=== PATIENT | male | born 1985 | race Caucasian/White ===

== ENCOUNTER 2016-10-03 03:03 | Inpatient (IN) | payer SELFPAY ==
[~2016-10-03] VITALS: Ht 172.7 cm; Wt 80.3 kg
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
--- NOTE | ~2016-10-03 | CON ---
PATIENT'S NAME: AHSAN WALSH [facility] AGE: 31 Y [address] ROOM: [address] [place] [id number] LOCATION: GICU ADMIT DATE: 10/03/2016 Consultation DISCHARGE DATE: 10/03/2016 FAMILY PHYSICIAN: Physician, Unknown ATTENDING PHYSICIAN: Beto Mitchell REFERRING PHYSICIAN: John Gómez MD HISTORY OF PRESENT ILLNESS: Dr. Mitchell has requested that I provide an inpatient consultation on this 31- year-old retired [employer] who was transferred emergently to [facility] from [place] last evening after he experienced a reported anaphylactic reaction while receiving intravenous sedation to undergo closed reduction of a right shoulder dislocation. History is obtained from the patient's cousin (who is at his bedside in the Intensive Care Unit). History is also obtained from review of his chart. The patient, himself, is intubated in the Intensive Care Unit and is not capable of providing history. The patient sustained an unspecified injury to his right shoulder while serving in the [employer] in [facility]. He sustained multiple injuries while serving in [facility] resulting in a right shoulder resurfacing hemiarthroplasty and a right total hip arthroplasty. His cousin is uncertain regarding how well the right shoulder has been feeling and functioning. The patient fell in the shower yesterday with resultant right shoulder pain and difficulty moving his right shoulder. He was taken to the [place] [facility] where x-rays demonstrated a dislocation of his right shoulder. PHYSICAL EXAMINATION: GENERAL: The patient is sedated and intubated. EXTREMITIES: The right shoulder demonstrates a well-healed deltopectoral scar. There is atrophy of subcutaneous tissues surrounding the scar. Motor and sensory exam of the right shoulder is not possible. There is no swelling, erythema, or ecchymosis at the right shoulder. A 1+ radial pulse. There is no peripheral edema in the right upper extremity. RADIOGRAPHS: I reviewed outside radiographs of the right shoulder. These demonstrate a resurfacing type humeral hemiarthroplasty. The humeral head is anteroinferiorly dislocated. There appears to be a slight radiolucency at the humeral stem interface. There was heterotopic bone along the medial aspect of the proximal humeral shaft. IMPRESSION: Right shoulder instability, status post right shoulder resurfacing hemiarthroplasty (performed elsewhere). The baseline functional status of PATIENT'S NAME: AHSAN WALSH [facility] AGE: 31 Y [address] ROOM: [address] [address] LOCATION: GICU ADMIT DATE: 10/03/2016 Consultation DISCHARGE DATE: 10/03/2016 FAMILY PHYSICIAN: Physician, Unknown ATTENDING PHYSICIAN: Beto Mitchell this shoulder not known. RECOMMENDATIONS: I recommended and performed a closed reduction maneuver under intravenous sedation. Please refer to the separately dictated procedure note. Postreduction radiographs demonstrated that the dislocation had been reduced. There is suggestion of a potential fracture of the anterior inferior glenoid (age uncertain). The glenoid is not resurfaced. I have recommended immobilization in a sling. Further history will be gleaned from the patient after he is extubated, and I would like to obtain prior radiographs for comparison and examine the patient with him alert. Based upon the examination under anesthesia, he is at risk for recurrent instability. I have shared my thoughts and recommendations directly with the patient's cousin (with whom the patient lives). MD SHERYL MOTA/allie /[id number] CC: Beto Mitchell MD d: 10/03/16 2338 t: 10/07/16 0753, CONSULTATION REPORT
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
--- NOTE | ~2016-10-03 | DS ---
PATIENT'S NAME: RAGHU [facility] AGE: 31 Y [address] ROOM: [address] [place], [place] [address] LOCATION: GICU ADMIT DATE: 10/03/2016 Discharge Summary DISCHARGE DATE: 10/03/2016 FAMILY PHYSICIAN: Physician, Unknown ATTENDING PHYSICIAN: Beto Mitchell DISCHARGE DIAGNOSES: 1. Acute anaphyllaxis secondary to Valium. 2. Dislocated right shoulder. PROCEDURES: 1. Mechanical ventilation. 2. Relocation of right shoulder under anesthesia by Dr. Gómez. REASON FOR ADMISSION: The patient had received some Valium he is allergic to in [facility]. Reference is made to the H and P. They could not relocate his shoulder and he subsequently had anaphylaxis to the Valium. So, for multiple reasons, his care was moved to here to this higher level. There was really no laboratory done here today. Reference is made to the lab results from outside the hospital. They kept the patient sedated until Dr. Gómez was able to do the relocation this morning and upon withdrawing anesthesia, the patient awoke and wanted to leave and not wait to avoid a possible second bimodal anaphylactic experience. I had a long discussion with him. He is a 10-year [employer] and he is used to taking care of himself. The additional history to that in the H and P includes: 1. Total right hip. 2. Right humeral head replacement. 3. He had a brief period of what he might describe as PTSD when he returned to the [facility], but he feels like it was nothing anybody returning from combat would not have gone through and he does not consider himself to have it now. He is status post surgical removal of a malignant hepatoma. He has not gotten followup on that as recommended. So, he is not sure whether or not there is any recurrence at this point. He is an occasional smoker. Denies psychiatric issues or history of use of psychiatric medications. He will be discharged on prednisone 20 b.i.d. for 6 days. We will give him 25 of Benadryl before he leaves and put him on Claritin 10 mg daily in the hopes of warding off any secondary anaphylactic issues. I did recommend if he was going to use NSAIDs like the ibuprofen he had been taking, that he wait until he is off the prednisone to avoid an ulcer and I also told him if he was going PATIENT'S NAME: [facility]HU [facility] AGE: 31 Y [address] ROOM: [address] [place], [place] [address] LOCATION: [facility] ADMIT DATE: 10/03/2016 Discharge Summary DISCHARGE DATE: 10/03/2016 FAMILY PHYSICIAN: Physician, Unknown ATTENDING PHYSICIAN: Beto Mitchell to take them at those dosages, that he probably needed a proton pump inhibitor to protect his stomach. So, I prescribed omeprazole for him, told him how to take it. DISCHARGE INSTRUCTIONS: Diet will be ad jose. Activity: We will recommend orthopedic followup. I am checking with Dr. Gómez about an orthopedist close to [place] and I will recommend physical therapy regardless for that right shoulder to see if we can prevent any further dislocations as Dr. Gómez did say the soulder was unstable and I informed Raghu of that. Note that discharge time was greater than 30 minutes. MD TANIA FRANCO/modl /[id number] d: 10/04/16 0200 t: 10/08/16 1614, DISCHARGE SUMMARY
[2016-10-03 05:09] LABS: HEMATOCRIT 40.9 % (37.0-53.0); HEMOGLOBIN 13.6 g/dL (12.0-17.0); MCH 28.3 pg (27.0-34.0); MCHC 33.3 gm/dL (32.0-36.5); MCV 85.2 fl (83.0-98.0); MPV 8.9 fl (9.4-12.4); RBC 4.8 M/uL (4.00-6.00); RDW-CV 13.2 % (11.9-14.6)
[2016-10-03 05:15] LABS: PROTIME 10.7 SECONDS (9.6-11.1)
--- NOTE | 2016-10-03 05:23 | NUR ---
Patient arrived to floor at 0315 intubated with a 7.0 tube, approximately 24 at the lip. He was weaned from an FIO2 of 70% down to an FIO2 of 30%. End tidal has been in the mid 30's. Breath sounds are slightly coarse before and after suctioning. Suctioned a small amount of thick white secretions. Plan for today is to extubate.
[2016-10-03 05:26] LABS: ALBUMIN 3.2 gm/dL (3.5-5.0); ALK PHOS 59 IU/L (33-138); ALT 31 IU/L (12-78); ANION GAP 13.8 (10.0-19.0); AST 12 IU/L (10-40); BLOOD UREA NITROGEN 20 mg/dL (6-24); CALCIUM 7.6 mg/dL (8.5-10.5); CHLORIDE 112 mMol/L (96-110); CO2 21 mMol/L (22-32); CREATININE 0.6 mg/dL (0.6-1.3); ESTIMATED GFR (MDRD EQUATION) > 60; PHOSPHORUS 3.4 mg/dL (2.5-4.9); POTASSIUM 3.8 mMol/L (3.7-5.1); SODIUM 143 mMol/L (135-145); TOTAL BILIRUBIN 0.3 mg/dL (0.0-1.5); TOTAL PROTEIN 5.9 g/dL (6.0-8.4)
--- NOTE | 2016-10-03 05:30 | NUR ---
PT ADMITTED FROM [facility] ER AT 0315. PT ALERT, WRITING TO COMMUNICATE, ASKING QUESTIONS AND PROVIDING LIMITED HEALTH HISTORY. PROPOFOL STARTED FOR ANXIOLYSIS/SEDATION. CURRENTLY SEDATED ON 15 MCG/KG/MIN WITH PRN FENTANYL FOR PAIN MANAGEMENT. LUNGS SLIGHTLY COARSE, OVERBREATHES VENT. SR ON MONITOR, PULSES GOOD THROUGHOUT, BP SLIGHTLY HYPOTENSIVE. OG TO LIS, ACTIVE BS, NO BM THIS SHIFT. NO ZUÑIGA PLACED DUE TO EXPECTED EXTUBATION THIS AM; NO VOIDS SINCE ADMISSION. NO SKIN ISSUES OTHER THAN OLD HEALED SCARS. ALL LINES REMAIN IN PLACE AND PATENT. MARIIA THURMAN RN
[2016-10-03] MEDS ORDERED: PERCOCET 5-3251 EACH PO (13:42)
[2016-10-03] MEDS ORDERED: OMEPRAZOLE20 M1 PO (13:43)
[2016-10-03] MEDS ORDERED: DELTASONE20 MG PO (13:44)
[2016-10-03] MEDS ORDERED: CLARITIN10 MG PO (13:44)
== END 2016-10-03 14:20 | disposition disaster alternative care site (69) | DRG 916 ==
LOC: GICU 03:03
PROVIDERS: ADMIT Internal Medicine
PROC: 0RSJ3ZZ Reposition Right Shoulder Joint, Percutaneous Approach (ICD-10-PCS; principal; 2016-10-03)
DX: T78.2XXA Anaphylactic shock, unspecified, initial encounter (principal); S43.004A Unspecified dislocation of right shoulder joint, initial encounter; W18.2XXA Fall in (into) shower or empty bathtub, initial encounter; Y92.012 Bathroom of single-family (private) house as the place of occurrence of the external cause
CPT/HCPCS: C9113; J1200; J2704; J3010; J7030

== ENCOUNTER → 2016-10-03 | Outpatient (CLI) | payer SELFPAY ==
[~2016-10-03] MED LIST: CLARITIN10 MG PO; DELTASONE20 MG PO; OMEPRAZOLE20 M1 PO; PERCOCET 5-3251 EACH PO
== END | disposition disaster alternative care site (69) ==
LOC: GAIR 02:40
DX: T78.40XA Allergy, unspecified, initial encounter (principal); Z88.1 Allergy status to other antibiotic agents; Z88.8 Allergy status to other drugs, medicaments and biological substances
CPT/HCPCS: A0422; A0431; A0436; J2250; J3010

== ENCOUNTER 2016-10-19 15:50 | Emergency (ER) | payer SELFPAY ==
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
[2016-10-19 17:09] LABS: BASOPHIL % 0.3 %; EOSINOPHIL % 0.2 %; HEMATOCRIT 48.5 % (37.0-53.0); HEMOGLOBIN 16.5 g/dL (12.0-17.0); IMMATURE GRANULOCYTE % 0.2 %; LYMPHOCYTE # 1.2 K/uL (0.8-4.0); LYMPHOCYTE % 13.5 %; MCH 28.4 pg (27.0-34.0); MCV 83.3 fl (83.0-98.0); MONOCYTE # 0.4 K/uL (0.0-1.0); MONOCYTE % 4.5 %; MPV 8.8 fl (9.4-12.4); NEUTROPHIL % 81.3 %; NRBC % 0 /100WBC (0-0.00); PLATELET COUNT 257 K/uL (150-450); RBC 5.82 M/uL (4.00-6.00); RDW-CV 13.3 % (11.9-14.6); WBC 8.7 K/uL (4.0-11.0)
[2016-10-19 17:25] LABS: ALBUMIN 4.6 gm/dL (3.5-5.0); ALK PHOS 101 IU/L (33-138); ALT 34 IU/L (12-78); AST 24 IU/L (10-40); BLOOD UREA NITROGEN 11 mg/dL (6-24); CALCIUM 8.9 mg/dL (8.5-10.5); CHLORIDE 106 mMol/L (96-110); CO2 23 mMol/L (22-32); CREATININE 0.9 mg/dL (0.6-1.3); ESTIMATED GFR (MDRD EQUATION) > 60; SODIUM 138 mMol/L (135-145); TOTAL PROTEIN 8.1 g/dL (6.0-8.4)
[2016-10-19 17:31] LABS: TOTAL BILIRUBIN 0.5 mg/dL (0.0-1.5)
[2016-10-20 01:15] LABS: BILIRUBIN URINE NEGATIVE (NEGATIVE); BLOOD URINE NEGATIVE /UL (NEGATIVE); COLOR URINE YELLOW (YELLOW); GLUCOSE URINE NEGATIVE (NEGATIVE); KETONE URINE NEGATIVE (NEGATIVE); LEUKOCYTES URINE NEGATIVE /UL (NEGATIVE); NITRITE URINE NEGATIVE (NEGATIVE); PROTEIN URINE NEGATIVE (NEGATIVE); TURBIDITY URINE CLEAR (CLEAR); UROBILINOGEN URINE NORMAL (NORMAL)
== END 2016-10-19 22:25 | disposition disaster alternative care site (69) ==
LOC: GMED 15:50
PROVIDERS: Emergency Medicine; Physician Assistant Medical
PROC: 0T9B70Z Drainage of Bladder with Drainage Device, Via Natural or Artificial Opening (ICD-10-PCS; principal; 2016-10-19)
DX: R53.1 Weakness (principal); R20.0 Anesthesia of skin; F17.200 Nicotine dependence, unspecified, uncomplicated; Z88.8 Allergy status to other drugs, medicaments and biological substances
CPT/HCPCS: J1100; J1200; J3010; J7030

== ENCOUNTER 2016-11-22 16:56 | Observation (INO) | payer SELFPAY ==
[~2016-11-22] VITALS: Ht 172.7 cm; Wt 76.4 kg
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
--- NOTE | 2016-11-23 04:57 | NUR ---
Significant Event: VSS, PT AFEBRILE. PT HAD 1 PINK TINGED VOID THIS SHIFT FOR A TOTAL OF 40ML, BLADDER SCANNED AND PT ONLY HAD 250 ML. CALLED INFORMED MD OF LITTLE OUTPUT-NO ORDERS RECEIVED. PT QUITE DISRUPTIVE AND INAPPROPRIATE THIS SHIFT (SEE PT NOTE). NURSING CLERK STARTED AT 1999. URINE SENT FOR C&S. IV FLUIDS CONTINUE AT 100ML/HR. GIRLFRIEND IN ROOM. PAIN IS DOWN TO A 6 WITH NURSING CLERK. UP IN ROOM AND HALLWAY. USES CALL LIGHT APPROPRIATELY. Follow up:
[2016-11-23 06:01] LABS: BASOPHIL % 0.4 %; EOSINOPHIL # 0.2 K/uL (0.0-0.5); EOSINOPHIL % 3.3 %; HEMOGLOBIN 13.5 g/dL (12.0-17.0); IMMATURE GRANULOCYTE % 0.4 %; MCH 28.6 pg (27.0-34.0); MCHC 33.8 gm/dL (32.0-36.5); MCV 84.7 fl (83.0-98.0); MONOCYTE # 0.4 K/uL (0.0-1.0); MONOCYTE % 7.5 %; MPV 8.7 fl (9.4-12.4); NEUTROPHIL # (ANC) 2.3 K/uL (1.4-9.0); NEUTROPHIL % 47.4 %; NRBC % 0 /100WBC (0-0.00); PLATELET COUNT 192 K/uL (150-450); RBC 4.72 M/uL (4.00-6.00); RDW-CV 13.5 % (11.9-14.6); WBC 4.8 K/uL (4.0-11.0)
[2016-11-23 06:31] LABS: ALBUMIN 3.8 gm/dL (3.5-5.0); ALK PHOS 78 IU/L (33-138); ALT 27 IU/L (12-78); ANION GAP 14.4 (10.0-19.0); AST 14 IU/L (10-40); BLOOD UREA NITROGEN 13 mg/dL (6-24); CALCIUM 9.1 mg/dL (8.5-10.5); CHLORIDE 107 mMol/L (96-110); CO2 23 mMol/L (22-32); CREATININE 0.7 mg/dL (0.6-1.3); ESTIMATED GFR (MDRD EQUATION) > 60; POTASSIUM 4.4 mMol/L (3.7-5.1); SODIUM 140 mMol/L (135-145); TOTAL PROTEIN 6.8 g/dL (6.0-8.4)
[2016-11-23 06:34] LABS: TOTAL BILIRUBIN 0.3 mg/dL (0.0-1.5)
--- NOTE | 2016-11-23 06:55 | NUR ---
PATIENTS DOOR CAME OPEN AND THEN WAS KICKED SHUT, PATIENT AND FEMALE IN ROOM YELLING AT EACH OTHER IN ROOM. [employer] CALLED AND SECURITY WENT INTO ROOM FIRST. PATIENT WAS STANDING AT BEDSIDE AND STATED WE DID NOT BELONG IN THE ROOM. NURSING STATED WE HEARD YELLING AND THE CAME OPEN AND WAS SLAMMED SHUT. PATIENT STATED HE JUST WANTED HIS PAPERS AND OUT OF HERE. AMA PAPERS GIVEN TO PATIENT HE DID NOT SIGN THEM, HE PULLED HIS IV OUT AND LEFT FLOOR WITH SECURITY.
== END 2016-11-23 06:55 | disposition left against medical advice (07) ==
LOC: GPCU 16:56
PROVIDERS: ADMIT Family Medicine
DX: R10.9 Unspecified abdominal pain (principal); R31.9 Hematuria, unspecified; F43.10 Post-traumatic stress disorder, unspecified; F17.210 Nicotine dependence, cigarettes, uncomplicated; Z85.05 Personal history of malignant neoplasm of liver; Z88.5 Allergy status to narcotic agent; Z88.8 Allergy status to other drugs, medicaments and biological substances; Z79.899 Other long term (current) drug therapy; Z98.890 Other specified postprocedural states
CPT/HCPCS: G0378; J1170; J7030